=== PATIENT | male | born 1995 ===

== ENCOUNTER 2023-09-17 11:30 | Outpatient (CLI) | payer OTHER ==
--- NOTE | 2023-09-17 16:15 | XRAY Report ---
PROCEDURE: Foot 1-2V LT INDICATIONS: CONTUSION OF LEFT LESSER TOE(S) TECHNIQUE: 3 views of the foot were acquired. COMPARISON: None. FINDINGS: Bones: No fractures or dislocations. No suspicious bony lesions. Soft tissues: No tibiotalar joint effusion. Achilles tendon appears normal. IMPRESSION: No visualized acute fracture or dislocation. However, occult injury cannot be excluded. Recommend hattie rt interval imaging follow-up in 7-10 days as clinically indicated for additional evaluation. Reviewed by: May Foreman MD on 09/17/2023 4:13 PM PDT Approved by: May Foreman MD on 09/17/2023 4:13 PM PDT Station ID: [id number]
== END 2023-09-17 11:45 | disposition home or self-care (01) ==
LOC: DI.N 11:30
PROVIDERS: ATTEND Physician Assistant Medical
DX: S90.222A Contusion of left lesser toe(s) with damage to nail, initial encounter (principal)